=== PATIENT | female | born 1970 | race Two or more races ===

== ENCOUNTER 2020-06-18 17:04 | Inpatient (IN) | payer OTHER ==
[~2020-06-18] VITALS: Ht 162.6 cm; Wt 97.2 kg
--- NOTE | 2020-06-18 17:32 | NUR ---
Pt brought to 43, placed in gown and positioned for comfort in bed. Continuous heart, oxygen and BP monitors applied, all safety measures observed. Pt reports intermittent sub sternal CP, dizziness, SOB worsening over the last week. Pt appears pale, increased WOB, speaking in 1-2 word sentences. Initial SPO2 55% on RA. Increased to 97% on 6L via NC. Pt's resp rate 40/min. Pt denies any sick contacts. Dr. Trevino at bedside to evaluate pt.
--- NOTE | 2020-06-18 18:28 | NUR ---
Pt resting in bed with eyes closed, resps remain rapid but SPO2 remains >95% on 6L via NC. Will continue to monitor.
[2020-06-18 18:39] LABS: ALANINE AMINOTRANSFERASE 16 U/L (12-78); ALBUMIN 2.6 g/dL (3.4-5.0); ANION GAP 6 mmol/L (5-15); CALCIUM 8.6 mg/dL (8.5-10.1); CHLORIDE 102 mmol/L (98-107); CREATININE 0.74 mg/dL (0.55-1.02)
[2020-06-18 18:45] LABS: ALKALINE PHOSPHATASE 78 U/L (45-117); BILIRUBIN,TOTAL 0.7 mg/dL (0.2-1.0); C-REACTIVE PROTEIN, QUANT 5.38 mg/dL (0.02-0.49); TOTAL PROTEIN 8.5 g/dL (6.4-8.2); TROPONIN I 0.021 ng/mL (0.000-0.045)
[2020-06-18 18:57] LABS: BASOPHILS % (AUTO) 1 % (0-1); EOSINOPHILS % (AUTO) 1 % (1-7); LYMPHOCYTES % (AUTO) 12 % (22-44); MEAN CORPUSCULAR HEMOGLOBIN 14.7 pg (27.0-34.8); MEAN PLATELET VOLUME 8.5 fL (7.4-10.4); MONOCYTES % (AUTO) 8 % (2-9); NEUTROPHILS % (AUTO) 78 % (42-75); PLATELET COUNT 502 x10^3/uL (130-400); RED BLOOD COUNT 4.52 x10^6/uL (3.82-5.3); RED CELL DISTRIBUTION WIDTH 22.7 % (9.6-15.2)
--- NOTE | 2020-06-18 19:03 | NUR ---
REPORT RECIEVED FROM JOE TORO.
[2020-06-18 19:04] LABS: MEAN CORPUSCULAR HGB CONC 26.8 g/dL (32.4-35.8)
[2020-06-18 19:12] LABS: MD YES
--- NOTE | 2020-06-18 19:13 | NUR ---
PRECEPTOR; THIS RN IN PT ROOM PRECEPTING JESSIE DIAZ
[2020-06-18 19:14] LABS: D-DIMER (DIC) 4.32 ug/mlFEU (0.00-0.52); LYMPH#(MANUAL) 0.62 x10^3/uL (1-3.4); LYMPHS% (MANUAL) 6 % (22-44); MONOS#(MANUAL) 0.62 x10^3/uL (0.3-2.7); MONOS% (MANUAL) 6 % (2-9); PROTIME 12.4 Seconds (9.6-11.5); SEG#(MANUAL) 9.06 x10^3/uL (1.8-6.8); SEGS% (MANUAL) 88 % (42-75)
[2020-06-18 19:15] LABS: ANISOCYTOSIS 1+; HYPOCHROMIA 3+; MICROCYTOSIS 3+; OVALOCYTES 1+; POLYCHROMASIA 1+
[2020-06-18 19:16] LABS: <PLATELET ESTIMATE> INCREASED; LARGE PLATELETS 1+
[2020-06-18 19:17] LABS: TEAR DROPS 1+
--- NOTE | 2020-06-18 19:27 | NUR ---
PT AMBULATED TO RESTROOM WITH DAUGHTER, PT MORE SOB, ABLE TO RECOVER SITTING UP IN BED.
[2020-06-18] MEDS ORDERED: methylPREDNISolone SOD SUCC 125 MG/2 ML ONE (19:59)
[2020-06-18] MEDS ORDERED: AZITHROMYCIN 500 MG in SODIUM CHLORIDE 0.9% 250 ML IV ONE (20:00)
[2020-06-18] MEDS ORDERED: CEFTRIAXONE PMX 1GM/50ML 50 ML ONE (20:00)
[2020-06-18] MEDS ORDERED: CEFTRIAXONE PMX 1GM/50ML 50 ML IV ONE (20:00)
[2020-06-18] MEDS ORDERED: methylPREDNISolone SOD SUCC 125 MG/2 ML IVPush ONE (20:00)
--- NOTE | 2020-06-18 20:23 | NUR ---
ABX HUNG AFTER BLOOD CULTURES DRAWN
[2020-06-18] MEDS ORDERED: METHOCARBAMOL 500 MG TABLET PO PRN (20:30)
[2020-06-18] MEDS ORDERED: BENZONATATE 100 MG CAPSULE PO PRN (20:30)
[2020-06-18] MEDS ORDERED: ZOLPIDEM 5MG TABLET PO PRN (20:30)
[2020-06-18] MEDS ORDERED: PHARMACY MAY ADJ FOR RENAL FX MC PRN (20:30)
[2020-06-18] MEDS ORDERED: morphine SULFATE 10 MG/ML, 1ML IVPush PRN (20:30)
[2020-06-18] MEDS ORDERED: ENALAPRILAT 1.25 MG/ML, 2ML IVPush PRN (20:30)
[2020-06-18] MEDS ORDERED: HYDROcodone/APAP 5/325 TABLET PO PRN (20:30)
[2020-06-18] MEDS ORDERED: ONDANSETRON 2MG/ML, 2ML IVPush PRN (20:30)
[2020-06-18] MEDS ORDERED: DOCUSATE 100 MG CAPSULE PO PRN (20:30)
[2020-06-18] MEDS ORDERED: GUAIFENESIN/DM 200-20MG, 10ML UDC PO PRN (20:30)
[2020-06-18] MEDS: FAMOTIDINE 20 MG TABLET PO SCH (21:00)
[2020-06-18] MEDS: ASCORBIC ACID 500 MG TABLET PO SCH (21:00)
[2020-06-18 21:07] VITALS: BP 136/83
--- NOTE | 2020-06-18 21:08 | NUR ---
pt started on blood, charting in transfusions for vitals. pt and daughter understanding of poc, consents signed.
[2020-06-18 21:13] LABS: ABSOLUTE RETICS # 0.179 x10^6/uL (0.5-2.5); RED BLOOD COUNT 4.45 x10^6/uL (3.82-5.3); RETICULOCYTE COUNT % 4.01 % (0.5-1.5)
[2020-06-18 21:23] VITALS: BP 143/65
--- NOTE | 2020-06-18 21:33 | NUR ---
REPORT GIVEN TO JOE GERARDO.
[2020-06-18 21:47] VITALS: BP 152/45
--- NOTE | 2020-06-18 22:04 | NUR ---
PT'S ROCHEPHIN STOPPED AT TIME OF TRANSFER, UNABLE TO GIVE ZITHROMAX. ICU, RN AWARE
--- NOTE | 2020-06-18 22:14 | NUR ---
BLOOD RUNNING DURING TRANSFER, 2 Q15 MIN VITALS DONE. Q HOUR VITAL TO BE DONE ON FLOOR. PT STATES FEELING "OK", DAUGHTER WAS SPOKEN WITH AND TOLD TO ISOLATE AT HOME BECAUSE OF POTENTIAL EXPOSURE, DAUGHTER AGREEABLE.
[2020-06-18] MEDS ORDERED: OMNIPAQUE 350 MG/ML, 100ML BOTTLE ONE (22:39)
[2020-06-18 23:40] VITALS: BP 148/86
[2020-06-19 00:40] VITALS: BP 145/86
[2020-06-19 02:58] LABS: BASOPHILS % (AUTO) 1 % (0-1); EOSINOPHILS % (AUTO) 0 % (1-7); LYMPHOCYTES % (AUTO) 5 % (22-44); MEAN PLATELET VOLUME 8.2 fL (7.4-10.4); MONOCYTES % (AUTO) 2 % (2-9); NEUTROPHILS % (AUTO) 93 % (42-75); PLATELET COUNT 389 x10^3/uL (130-400); RED BLOOD COUNT 4.76 x10^6/uL (3.82-5.3); RED CELL DISTRIBUTION WIDTH 25.5 % (9.6-15.2)
[2020-06-19 02:59] LABS: HCT (SEDRATE) 27.5 % (34.6-47.8)
[2020-06-19 03:11] LABS: % IRON SATURATION 40 % (20-55); ALANINE AMINOTRANSFERASE 16 U/L (12-78); ALBUMIN 2.6 g/dL (3.4-5.0); ANION GAP 4 mmol/L (5-15); CALCIUM 8.7 mg/dL (8.5-10.1); CHLORIDE 105 mmol/L (98-107); CREATININE 0.59 mg/dL (0.55-1.02); IRON LEVEL 147 mcg/dL (50-170); TOTAL IRON BINDING CAPACITY 365 mcg/dL (250-450)
[2020-06-19 03:14] LABS: ALKALINE PHOSPHATASE 82 U/L (45-117); BILIRUBIN,TOTAL 1.5 mg/dL (0.2-1.0); TOTAL PROTEIN 8.3 g/dL (6.4-8.2)
[2020-06-19 03:50] LABS: MD SCAN; MEAN CORPUSCULAR HGB CONC 27.6 g/dL (32.4-35.8)
[2020-06-19 04:00] VITALS: BP 155/89
[2020-06-19 08:00] VITALS: BP 125/63
[2020-06-19] MEDS ORDERED: FAMOTIDINE 40 MG TABLET ONE ×2 (09:24→20:23)
[2020-06-19] MEDS: ZINC SULFATE 220 MG CAPSULE PO SCH (09:43)
[2020-06-19] MEDS: ASCORBIC ACID 500 MG TABLET PO SCH ×2 (09:43→20:44)
[2020-06-19] MEDS: DEXAMETHASONE 4 MG TABLET PO SCH ×2 (09:43→20:46)
[2020-06-19] MEDS: FAMOTIDINE 20 MG TABLET PO SCH ×2 (09:43→20:44)
[2020-06-19] MEDS: ENOXAPARIN 40 MG/0.4 ML SQ SCH (09:45)
[2020-06-19] MEDS: AZITHROMYCIN 500 MG in SODIUM CHLORIDE 0.9% 250 ML IV SCH (11:52)
[2020-06-19 14:30] VITALS: BP 126/67
[2020-06-19] MEDS ORDERED: AZITHROMYCIN 500 MG in SODIUM CHLORIDE 0.9% 250 ML IV SCH (20:00)
[2020-06-19 20:39] VITALS: BP 128/74
[2020-06-19] MEDS: CEFTRIAXONE PMX 1GM/50ML 50 ML IV SCH (21:03)
[2020-06-20 00:44] VITALS: BP 123/80
[2020-06-20 02:32] LABS: HCT (SEDRATE) 26.2 % (34.6-47.8)
[2020-06-20 02:44] LABS: ALANINE AMINOTRANSFERASE 16 U/L (12-78); ALBUMIN 2.6 g/dL (3.4-5.0); ANION GAP 2 mmol/L (5-15); CALCIUM 9.1 mg/dL (8.5-10.1); CHLORIDE 107 mmol/L (98-107); CREATININE 0.55 mg/dL (0.55-1.02)
[2020-06-20 02:46] LABS: ALKALINE PHOSPHATASE 72 U/L (45-117); BILIRUBIN,TOTAL 0.5 mg/dL (0.2-1.0)
[2020-06-20] MEDS ORDERED: FAMOTIDINE 40 MG TABLET ONE ×2 (09:25→20:10)
[2020-06-20 09:33] VITALS: BP 132/84
[2020-06-20] MEDS: DEXAMETHASONE 4 MG TABLET PO SCH ×2 (09:38→20:45)
[2020-06-20] MEDS: FAMOTIDINE 20 MG TABLET PO SCH ×2 (09:38→20:45)
[2020-06-20] MEDS: ZINC SULFATE 220 MG CAPSULE PO SCH (09:38)
[2020-06-20] MEDS: ASCORBIC ACID 500 MG TABLET PO SCH ×2 (09:38→20:46)
[2020-06-20] MEDS: ENOXAPARIN 40 MG/0.4 ML SQ SCH (09:39)
[2020-06-20 12:24] VITALS: BP 127/61
[2020-06-20] MEDS: AZITHROMYCIN 500 MG in SODIUM CHLORIDE 0.9% 250 ML IV SCH (12:29)
[2020-06-20] MEDS ORDERED: REMDESIVIR 200 MG in SODIUM CHLORIDE 0.9% 250 ML IVPB ONE (13:30)
[2020-06-20 20:30] VITALS: BP 130/67
[2020-06-20] MEDS: CEFTRIAXONE PMX 1GM/50ML 50 ML IV SCH (20:45)
[2020-06-21] VITALS (8 sets, daily range): BP systolic 128–148; BP diastolic 57–78
[2020-06-21 04:54] LABS: BASOPHILS % (AUTO) 0 % (0-1); EOSINOPHILS % (AUTO) 0 % (1-7); LYMPHOCYTES % (AUTO) 10 % (22-44); MEAN CORPUSCULAR HEMOGLOBIN 16.4 pg (27.0-34.8); MEAN PLATELET VOLUME 8.3 fL (7.4-10.4); MONOCYTES % (AUTO) 5 % (2-9); NEUTROPHILS % (AUTO) 85 % (42-75); PLATELET COUNT 353 x10^3/uL (130-400); RED BLOOD COUNT 4.29 x10^6/uL (3.82-5.3)
[2020-06-21 05:01] LABS: MD NO
[2020-06-21 05:04] LABS: ALBUMIN 2.6 g/dL (3.4-5.0); ANION GAP 3 mmol/L (5-15); CALCIUM 9.4 mg/dL (8.5-10.1); CHLORIDE 104 mmol/L (98-107)
[2020-06-21 05:07] LABS: ALANINE AMINOTRANSFERASE 22 U/L (12-78); ALKALINE PHOSPHATASE 68 U/L (45-117); BILIRUBIN,TOTAL 0.4 mg/dL (0.2-1.0); CREATININE 0.58 mg/dL (0.55-1.02); TOTAL PROTEIN 8.1 g/dL (6.4-8.2)
[2020-06-21 05:47] LABS: HCT (SEDRATE) 26.1 % (34.6-47.8)
[2020-06-21] MEDS ORDERED: FUROSEMIDE 20 MG/2 ML IV ONE (09:00)
[2020-06-21] MEDS: FAMOTIDINE 20 MG TABLET PO SCH ×2 (09:00→20:17)
[2020-06-21] MEDS ORDERED: ACETAMINOPHEN 325 MG TABLET PO ONE (09:00)
[2020-06-21] MEDS ORDERED: DEXAMETHASONE 1 MG TABLET ONE (09:19)
[2020-06-21] MEDS ORDERED: FAMOTIDINE 40 MG TABLET ONE ×2 (09:19→19:59)
[2020-06-21] MEDS: ASCORBIC ACID 500 MG TABLET PO SCH ×2 (09:25→20:17)
[2020-06-21] MEDS: ZINC SULFATE 220 MG CAPSULE PO SCH (09:25)
[2020-06-21] MEDS: DEXAMETHASONE 4 MG TABLET PO SCH ×2 (09:25→20:17)
[2020-06-21] MEDS: ENOXAPARIN 40 MG/0.4 ML SQ SCH (09:27)
[2020-06-21] MEDS: AZITHROMYCIN 500 MG in SODIUM CHLORIDE 0.9% 250 ML IV SCH ×2 (11:28→12:49)
[2020-06-21] MEDS: REMDESIVIR 100 MG in SODIUM CHLORIDE 0.9% 250 ML IVPB SCH (13:26)
[2020-06-21] MEDS: ALBUTEROL/IPRATROPIUM 2.5MG/0.5MG, 3 ML NPPB SCH ×2 (14:40→19:50)
[2020-06-21] MEDS: CEFTRIAXONE PMX 1GM/50ML 50 ML IV SCH (20:17)
[2020-06-22] VITALS (9 sets, daily range): BP systolic 121–167; BP diastolic 58–78
[2020-06-22] MEDS: ALBUTEROL/IPRATROPIUM 2.5MG/0.5MG, 3 ML NPPB SCH ×4 (01:50→21:00)
[2020-06-22 04:36] LABS: HCT (SEDRATE) 29.2 % (34.6-47.8)
[2020-06-22 04:41] LABS: INTERNATIONAL NORMALIZED RATIO 1.2 (0.93-1.1); PROTHROMBIN TIME 12.7 Seconds (9.6-11.5)
[2020-06-22 04:45] LABS: ALANINE AMINOTRANSFERASE 42 U/L (12-78); ALBUMIN 2.7 g/dL (3.4-5.0); ANION GAP 2 mmol/L (5-15); CALCIUM 9.3 mg/dL (8.5-10.1); CHLORIDE 103 mmol/L (98-107); CREATININE 0.51 mg/dL (0.55-1.02)
[2020-06-22 04:47] LABS: ALKALINE PHOSPHATASE 62 U/L (45-117); BILIRUBIN,TOTAL 0.5 mg/dL (0.2-1.0); TOTAL PROTEIN 7.8 g/dL (6.4-8.2)
[2020-06-22] MEDS: ZINC SULFATE 220 MG CAPSULE PO SCH (08:13)
[2020-06-22] MEDS: FAMOTIDINE 20 MG TABLET PO SCH ×2 (08:13→22:35)
[2020-06-22] MEDS: DEXAMETHASONE 4 MG TABLET PO SCH ×2 (08:13→22:38)
[2020-06-22] MEDS: ASCORBIC ACID 500 MG TABLET PO SCH ×2 (08:13→22:38)
[2020-06-22] MEDS: ENOXAPARIN 40 MG/0.4 ML SQ SCH (09:56)
[2020-06-22] MEDS: AZITHROMYCIN 500 MG in SODIUM CHLORIDE 0.9% 250 ML IV SCH (12:00)
[2020-06-22] MEDS: IRON SUCROSE COMPLEX 100MG/5ML IV SCH (12:00)
[2020-06-22] MEDS: REMDESIVIR 100 MG in SODIUM CHLORIDE 0.9% 250 ML IVPB SCH (13:30)
[2020-06-22] MEDS ORDERED: FAMOTIDINE 40 MG TABLET ONE (22:27)
[2020-06-22] MEDS: CEFTRIAXONE PMX 1GM/50ML 50 ML IV SCH (22:35)
[2020-06-23 02:00] VITALS: BP 144/68
[2020-06-23] MEDS: ALBUTEROL/IPRATROPIUM 2.5MG/0.5MG, 3 ML NPPB SCH (03:00)
[2020-06-23 04:59] LABS: HCT (SEDRATE) 30.5 % (34.6-47.8)
[2020-06-23 05:06] LABS: ALBUMIN 2.9 g/dL (3.4-5.0); ANION GAP 6 mmol/L (5-15); CALCIUM 9.5 mg/dL (8.5-10.1); CHLORIDE 104 mmol/L (98-107)
[2020-06-23 05:09] LABS: ALANINE AMINOTRANSFERASE 43 U/L (12-78); ALKALINE PHOSPHATASE 64 U/L (45-117); BILIRUBIN,TOTAL 0.6 mg/dL (0.2-1.0)
[2020-06-23 08:00] VITALS: BP 121/55
[2020-06-23] MEDS: FAMOTIDINE 20 MG TABLET PO SCH ×2 (08:43→21:00)
[2020-06-23] MEDS: IRON SUCROSE COMPLEX 100MG/5ML IV SCH (08:43)
[2020-06-23] MEDS: ASCORBIC ACID 500 MG TABLET PO SCH ×2 (08:43→21:01)
[2020-06-23] MEDS: DEXAMETHASONE 4 MG TABLET PO SCH ×2 (08:43→21:01)
[2020-06-23] MEDS: ZINC SULFATE 220 MG CAPSULE PO SCH (08:43)
[2020-06-23] MEDS: ALBUTEROL-IPRATROPIUM MDI INH INH SCH ×3 (09:00→19:00)
[2020-06-23] MEDS: ENOXAPARIN 40 MG/0.4 ML SQ SCH (10:00)
[2020-06-23] MEDS: AZITHROMYCIN 500 MG in SODIUM CHLORIDE 0.9% 250 ML IV SCH (11:59)
[2020-06-23 14:00] VITALS: BP 117/53
[2020-06-23] MEDS: REMDESIVIR 100 MG in SODIUM CHLORIDE 0.9% 250 ML IVPB SCH (14:41)
[2020-06-23] MEDS ORDERED: FAMOTIDINE 40 MG TABLET ONE (20:52)
[2020-06-23] MEDS: CEFTRIAXONE PMX 1GM/50ML 50 ML IV SCH (21:00)
[2020-06-23 21:08] VITALS: BP 127/59
[2020-06-24 01:17] VITALS: BP 129/62
[2020-06-24] MEDS: ALBUTEROL-IPRATROPIUM MDI INH INH SCH ×4 (02:30→19:00)
[2020-06-24 04:51] LABS: BASOPHILS % (AUTO) 1 % (0-1); EOSINOPHILS % (AUTO) 0 % (1-7); LYMPHOCYTES % (AUTO) 8 % (22-44); MEAN CORPUSCULAR HEMOGLOBIN 17.4 pg (27.0-34.8); MEAN PLATELET VOLUME 8.3 fL (7.4-10.4); MONOCYTES % (AUTO) 6 % (2-9); NEUTROPHILS % (AUTO) 85 % (42-75); PLATELET COUNT 318 x10^3/uL (130-400); RED BLOOD COUNT 4.94 x10^6/uL (3.82-5.3); RED CELL DISTRIBUTION WIDTH 31.3 % (9.6-15.2)
[2020-06-24 04:57] LABS: MEAN CORPUSCULAR HGB CONC 27.4 g/dL (32.4-35.8)
[2020-06-24 04:58] LABS: MD NO
[2020-06-24 05:02] LABS: ALANINE AMINOTRANSFERASE 39 U/L (12-78); ALBUMIN 2.7 g/dL (3.4-5.0); ANION GAP 5 mmol/L (5-15); CALCIUM 9.1 mg/dL (8.5-10.1); CHLORIDE 105 mmol/L (98-107); CREATININE 0.46 mg/dL (0.55-1.02)
[2020-06-24 05:05] LABS: ALKALINE PHOSPHATASE 58 U/L (45-117); BILIRUBIN,TOTAL 0.4 mg/dL (0.2-1.0); TOTAL PROTEIN 7.5 g/dL (6.4-8.2)
[2020-06-24 06:21] LABS: HCT (SEDRATE) 31.3 % (34.6-47.8)
[2020-06-24 08:00] VITALS: BP 115/54
[2020-06-24] MEDS: FAMOTIDINE 20 MG TABLET PO SCH ×2 (09:45→19:48)
[2020-06-24] MEDS: DEXAMETHASONE 4 MG TABLET PO SCH ×2 (09:45→19:48)
[2020-06-24] MEDS: ASCORBIC ACID 500 MG TABLET PO SCH ×2 (09:45→19:48)
[2020-06-24] MEDS: ENOXAPARIN 40 MG/0.4 ML SQ SCH (09:45)
[2020-06-24] MEDS: ZINC SULFATE 220 MG CAPSULE PO SCH (09:45)
[2020-06-24] MEDS: IRON SUCROSE COMPLEX 100MG/5ML IV SCH (09:46)
[2020-06-24] MEDS: AZITHROMYCIN 500 MG in SODIUM CHLORIDE 0.9% 250 ML IV SCH (13:11)
[2020-06-24 14:00] VITALS: BP 126/60
[2020-06-24] MEDS: REMDESIVIR 100 MG in SODIUM CHLORIDE 0.9% 250 ML IVPB SCH (14:49)
[2020-06-24] MEDS: CEFTRIAXONE PMX 1GM/50ML 50 ML IV SCH (19:47)
[2020-06-24 19:57] VITALS: BP 125/56
[2020-06-25 01:08] VITALS: BP 138/72
[2020-06-25] MEDS: ALBUTEROL-IPRATROPIUM MDI INH INH SCH ×4 (02:24→19:41)
[2020-06-25] MEDS: ZINC SULFATE 220 MG CAPSULE PO SCH (09:03)
[2020-06-25] MEDS: IRON SUCROSE COMPLEX 100MG/5ML IV SCH (09:03)
[2020-06-25] MEDS: FAMOTIDINE 20 MG TABLET PO SCH ×2 (09:03→21:05)
[2020-06-25] MEDS: DEXAMETHASONE 4 MG TABLET PO SCH ×2 (09:04→21:05)
[2020-06-25] MEDS: ASCORBIC ACID 500 MG TABLET PO SCH ×2 (09:04→21:06)
[2020-06-25] MEDS: ENOXAPARIN 40 MG/0.4 ML SQ SCH (09:09)
[2020-06-25] MEDS: ACETAMINOPHEN 325 MG TABLET PO PRN ×2 (09:09→21:13)
[2020-06-25 09:16] VITALS: BP 136/65
[2020-06-25] MEDS ORDERED: KETOROLAC 30 MG/1 ML IM PRN (11:00)
[2020-06-25] MEDS: AZITHROMYCIN 500 MG in SODIUM CHLORIDE 0.9% 250 ML IV SCH (12:24)
[2020-06-25 14:25] VITALS: BP 134/65
[2020-06-25] MEDS: CEFTRIAXONE PMX 1GM/50ML 50 ML IV SCH (21:05)
[2020-06-26] MEDS: ALBUTEROL-IPRATROPIUM MDI INH INH SCH ×4 (03:03→14:52)
[2020-06-26 03:36] VITALS: BP 129/62
[2020-06-26 04:22] LABS: BASOPHILS % (AUTO) 0 % (0-1); EOSINOPHILS % (AUTO) 0 % (1-7)
[2020-06-26 04:24] LABS: LYMPHOCYTES % (AUTO) 6 % (22-44); MEAN CORPUSCULAR HEMOGLOBIN 17.7 pg (27.0-34.8); MEAN PLATELET VOLUME 8.6 fL (7.4-10.4); MONOCYTES % (AUTO) 3 % (2-9); NEUTROPHILS % (AUTO) 91 % (42-75); PLATELET COUNT 347 x10^3/uL (130-400); RED BLOOD COUNT 5.11 x10^6/uL (3.82-5.3); RED CELL DISTRIBUTION WIDTH 32.8 % (9.6-15.2)
[2020-06-26 04:26] LABS: MD NO
[2020-06-26] MEDS: FAMOTIDINE 20 MG TABLET PO SCH ×2 (08:09→21:39)
[2020-06-26] MEDS: ASCORBIC ACID 500 MG TABLET PO SCH ×2 (08:09→21:39)
[2020-06-26] MEDS: IRON SUCROSE COMPLEX 100MG/5ML IV SCH (08:09)
[2020-06-26] MEDS: ACETAMINOPHEN 325 MG TABLET PO PRN ×2 (08:09→17:38)
[2020-06-26] MEDS: ZINC SULFATE 220 MG CAPSULE PO SCH (08:09)
[2020-06-26] MEDS: DEXAMETHASONE 4 MG TABLET PO SCH ×2 (08:10→21:39)
[2020-06-26] MEDS: ENOXAPARIN 40 MG/0.4 ML SQ SCH (08:12)
[2020-06-26 08:23] VITALS: BP 123/63
[2020-06-26] MEDS: AZITHROMYCIN 500 MG in SODIUM CHLORIDE 0.9% 250 ML IV SCH (12:11)
[2020-06-26 12:12] VITALS: BP 116/65
[2020-06-26] MEDS: CEFTRIAXONE PMX 1GM/50ML 50 ML IV SCH (19:36)
[2020-06-26 20:32] VITALS: BP 116/65
[2020-06-27 00:08] VITALS: BP 154/71
[2020-06-27] MEDS: ALBUTEROL-IPRATROPIUM MDI INH INH SCH ×4 (01:05→19:25)
[2020-06-27 05:43] VITALS: BP 119/66
[2020-06-27] MEDS: ENOXAPARIN 40 MG/0.4 ML SQ SCH (09:00)
[2020-06-27 09:07] VITALS: BP 129/70
[2020-06-27] MEDS: ACETAMINOPHEN 325 MG TABLET PO PRN ×2 (09:09→17:18)
[2020-06-27] MEDS: FAMOTIDINE 20 MG TABLET PO SCH (09:09)
[2020-06-27] MEDS: ASCORBIC ACID 500 MG TABLET PO SCH (09:10)
[2020-06-27] MEDS: ZINC SULFATE 220 MG CAPSULE PO SCH (09:10)
[2020-06-27] MEDS: IRON SUCROSE COMPLEX 100MG/5ML IV SCH (09:10)
[2020-06-27] MEDS: DEXAMETHASONE 4 MG TABLET PO SCH (09:10)
[2020-06-27] MEDS ORDERED: DEXA4TAB66 PO (11:44)
[2020-06-27] MEDS ORDERED: ZINC220C7 PO (11:44)
[2020-06-27] MEDS ORDERED: ASCO500T9 PO (11:44)
[2020-06-27] MEDS: AZITHROMYCIN 500 MG in SODIUM CHLORIDE 0.9% 250 ML IV SCH (11:52)
[2020-06-27 11:59] VITALS: BP 135/53
== END 2020-06-27 20:01 | disposition home health service (06) | DRG 871 ==
LOC: ED 19:40 → EDIP 19:46 → ED 21:15 → ICU 22:17
PROVIDERS: ADMIT Internal Medicine; ATTEND Internal Medicine
PROC: 30233N1 Transfusion of Nonautologous Red Blood Cells into Peripheral Vein, Percutaneous Approach (ICD-10-PCS; 2020-06-18)
PROC: 30233R1 Transfusion of Nonautologous Platelets into Peripheral Vein, Percutaneous Approach (ICD-10-PCS; principal; 2020-06-22)
DX: A41.89 Other specified sepsis (principal); U07.1 COVID-19; J12.89 Other viral pneumonia; J96.01 Acute respiratory failure with hypoxia; E44.0 Moderate protein-calorie malnutrition; E87.1 Hypo-osmolality and hyponatremia; D50.9 Iron deficiency anemia, unspecified; R65.20 Severe sepsis without septic shock; I50.9 Heart failure, unspecified; I27.20 Pulmonary hypertension, unspecified; I07.1 Rheumatic tricuspid insufficiency; G47.33 Obstructive sleep apnea (adult) (pediatric); E66.9 Obesity, unspecified; D25.9 Leiomyoma of uterus, unspecified; Z68.37 Body mass index [BMI] 37.0-37.9, adult; Z79.899 Other long term (current) drug therapy
CPT/HCPCS: 36415; 36600; 71045; 71275; 76856; 80053; 82728; 82803; 83540; 83550; 83605; 83615; 83735; 83880; 84100; 84145; 84443; 84484; 85014; 85025; 85045; 85049; 85379; 85384; 85610; 85651; 85730; 86140; 86850; 86900; 86923; 87040; 87081; 87635; 93005; 93306; 94640; 96365; 96366; 96372; 96375; 99291; G0378; J0456; J0696; J1650; J1756; Q9967; J1940; J2930; J7050; P9016; P9017